=== PATIENT | male | born 1945 | race Caucasian/White ===

== ENCOUNTER 2020-04-15 09:34 | Inpatient (IN) | payer MEDICARE ==
[2020-04-06 15:48] LABS: BASOPHILS # (AUTO) 0.1 X10'3 (0-0.2); BASOPHILS % (AUTO) 1.5 % (0-1); EOSINOPHILS # (AUTO) 0.3 X10'3 (0-0.9); EOSINOPHILS % (AUTO) 4.5 % (0-6); LYMPHOCYTES # (AUTO) 1.6 X10'3 (1.1-4.8); LYMPHOCYTES % (AUTO) 23.3 % (21-51); MEAN CORPUSCULAR HGB CONC 32.2 g/dL (33.0-36.5); MEAN CORPUSCULAR VOLUME 86.8 FL (78-98); MEAN PLATELET VOLUME 8.2 FL (7.4-10.4); MONOCYTES # (AUTO) 0.6 X10'3 (0-0.9); MONOCYTES % (AUTO) 9.3 % (2-12); NEUTROPHILS # (AUTO) 4.2 X10'3 (1.8-7.7); NEUTROPHILS % (AUTO) 61.4 % (42-75); PRE OP HEMATOCRIT 47.5 % (42.0-52.0); PRE OP HEMOGLOBIN 15.3 g/dL (14.0-17.9); PRE OP PLATELET COUNT 214 X10'3 (140-440); RED BLOOD COUNT 5.47 X10'6 (4.70-6.10); RED CELL DISTRIBUTION WIDTH 15.4 % (11.5-14.5)
[2020-04-06 16:02] LABS: ALBUMIN 3.7 G/DL (3.4-5.0); ALBUMIN/GLOBULIN RATIO 0.8 (1.1-1.5); ALKALINE PHOSPHATASE 65 IU/L (46-116); BLOOD UREA NITROGEN 15 MG/DL (7-18); BUN/CREATININE RATIO 10.8 (5.4-32.0); CALCIUM 9.4 MG/DL (8.5-10.1); CHLORIDE 104 MMOL/L (99-107); CREATININE 1.39 MG/DL (0.60-1.10); PRE OP ALT 22 U/L (30-65); PRE OP ANION GAP 5 (8-16); PRE OP AST 29 U/L (10-37); PRE OP BILIRUB, TOTAL 0.7 MG/DL (0.0-1.0); PRE OP GLUCOSE 82 MG/DL (70-104); PRE OP POTASSIUM 4.7 MMOL/L (3.4-5.1); PRE OP SODIUM 140 MMOL/L (135-145); TOTAL CARBON DIOXIDE 31.1 MMOL/L (24-32); TOTAL PROTEIN 8.2 G/DL (6.4-8.2); eGFR 50 ML/MIN
[2020-04-15] VITALS (15 sets, daily range): BP systolic 124–157; BP diastolic 81–103
[~2020-04-15] VITALS: Ht 180.3 cm; Wt 89.4 kg
[~2020-04-15 09:34] MED LIST: ALBU6.7H9 INH; ALLO100T PO; ASPI-1265 PO; ATRIN IH; CETI-194 PO; DEXL60CA3 PO; DOCUMENT DATE & TIME OF BETA-BLOCKER PO ONE; FAMO20TA8 PO; FLO0.4C PO; FLUT1DIS15 INH; HYDR118S10 PO; LEVO50TA8 PO; MELO-100 PO; METO100T14 PO; MONT10TA26 PO; SIMV-42 PO; albuterol 2.5 MG/3 ML nebule NEB ONE; ceFAZolin 2gm in dextrose, iso 50 ML IV ONE; famotidine 20mg tablet PO ONE; ringers solution, lacted 1,000 ML IV SCH; tranexamic acid inj. 890 MG in normal saline 100ml IV soln 100 ML IV ONE; vancomycin 1,500 MG in NS 500ml IV soln IV ONE
[2020-04-15] MEDS ORDERED: LIDOcaine 1% (10mg/ml) 2ml vial ONE (10:12)
[2020-04-15] MEDS ORDERED: ringers solution, lacted 1,000 ML IV SCH (11:55)
[2020-04-15] MEDS ORDERED: meperidine/PF 25mg/ml syringe IV PRN ×3 (11:55)
[2020-04-15] MEDS ORDERED: morphine 2 MG/ML inj. syringe IV PRN (11:55)
[2020-04-15] MEDS ORDERED: morphine 4 MG/ML inj SYRINge IV PRN (11:55)
[2020-04-15] MEDS ORDERED: ondansetron/PF 4mg/2ml inj IV PRN ×2 (11:55→16:00)
[2020-04-15] MEDS ORDERED: proCHLORperazine 10 MG/2 ml inj IV PRN (11:55)
[2020-04-15] MEDS ORDERED: fentaNYL/PF 50MCG/1 ML 2ML syringe ONE (12:55)
[2020-04-15] MEDS ORDERED: ketorolac trometh. 30mg/ml inj. ONE (12:55)
[2020-04-15] MEDS ORDERED: ROPIVAcaine 0.5% (5mg/ml) 30ml vial ONE ×2 (12:55→13:44)
[2020-04-15] MEDS ORDERED: MIDAZolam 5mg/5ml vial ONE (12:56)
[2020-04-15] MEDS ORDERED: dexamethasone sod phosphate 10mg/ml inj ONE (13:17)
[2020-04-15] MEDS ORDERED: sevoflurane 250ml liquid IH ONE (13:17)
[2020-04-15] MEDS ORDERED: ePHEDrine 50MG/ML INJ. ONE (13:17)
[2020-04-15] MEDS ORDERED: rocuronium 10mg/ml inj IV ONE (13:44)
[2020-04-15] MEDS ORDERED: LIDOcaine 2% (20mg/ml) 5ml vial ONE (13:44)
[2020-04-15] MEDS ORDERED: propofol inj 20 ML IV ONE (13:44)
[2020-04-15] MEDS ORDERED: ROPIVAcaine 0.2%/PF PUMP/bolus 550 ML INTERSCALE SCH (14:32)
[2020-04-15] MEDS ORDERED: ROPIVAcaine 0.2% (10 MG/5 ML) BOLUS INJECTION INTERSCALE PRN (14:35)
[2020-04-15] MEDS ORDERED: ondansetron/PF 4mg/2ml inj ONE (15:47)
[2020-04-15] MEDS: potassium cl 20mEq in 1/2 NS 1,000 ML IV SCH ×2 (15:57→22:12)
[2020-04-15] MEDS ORDERED: oxyCODONE IR 5mg (immed. release) tablet PO PRN ×2 (16:00)
[2020-04-15] MEDS ORDERED: acetaminophen 325mg tablet PO PRN (16:00)
[2020-04-15] MEDS ORDERED: ACETAMINOPHEN PO PRN (16:00)
[2020-04-15] MEDS ORDERED: HYDROmorphone inj. 0.5 MG/0.5 ML DISP.SYRIN IV PRN (16:00)
[2020-04-15] MEDS ORDERED: bisacodyl 10mg suppository rectal RC PRN (16:00)
[2020-04-15] MEDS ORDERED: HYDROCODONE PO PRN (16:00)
[2020-04-15] MEDS ORDERED: diphenhydrAMINE 25mg capsule PO PRN ×2 (16:00)
[2020-04-15] MEDS ORDERED: HYDROmorphone 1 mg/ml syringe IV PRN (16:00)
[2020-04-15] MEDS ORDERED: magnesium hydroxide 30ml (MOM) UD suspension PO PRN (16:00)
--- NOTE | 2020-04-15 16:03 | NUR ---
Received from OR via ortho bed, accompanied by Anesthesiologist Trip and report given by Anesthesiolgist. Doug has 10L Ot mask present sats 96%, all other VS stable, 20G right forearm 100cc/hr running. SCDs on. Good cap refill and plapable radial pulse to left arm, shoulder has dressing and cold pack in place under sling. Dentures at bedside.
[2020-04-15] MEDS ORDERED: albuterol 2.5 MG/3 ML nebule NEB PRN (17:05)
--- NOTE | 2020-04-15 17:13 | NUR ---
Report called to receiving nurse. Transferred via ortho bed. Belongings sent with patient. Special Issues communicated to receiving nurse LUBA Judge. BLL and call light within reach. VS stable. Will ambulate patient with assistance. Chart at bedside. Re-educated on pain meds/ ON-Q.
[2020-04-15] MEDS ORDERED: ipratropium 0.5 MG/2.5ML nebule IH PRN (17:15)
--- NOTE | 2020-04-15 17:15 | NUR ---
Report received from ASSISTANT PRODUCT MANAGERAbby.
--- NOTE | 2020-04-15 17:28 | NUR ---
Patient unable to void, Dr Reno was called and informed patient does has retention issues at home sometimes, he states okay to place straight cath q6h prn. Orders placed.
[2020-04-15] MEDS ORDERED: tranexamic acid inj. 890 MG in normal saline 100ml IV soln 100 ML IV ONE (19:00)
--- NOTE | 2020-04-15 19:00 | NUR ---
Problems reprioritized. Patient report given, questions answered & plan of care reviewed with LUBA Carreno.
[2020-04-15] MEDS: ceFAZolin 1GM/D5W- ADD-VANTAGE 50 ML IV SCH ×2 (19:10→23:47)
[2020-04-15] MEDS ORDERED: vancomycin/NS 1 GM ADD-VANTAGE 250 ML IV SCH (20:00)
[2020-04-15] MEDS: acetaminophen 325mg tablet PO SCH (20:06)
[2020-04-15] MEDS ORDERED: famotidine 20mg tablet PO SCH (21:00)
[2020-04-15] MEDS ORDERED: cetirizine 10mg tablet PO SCH (21:00)
[2020-04-15] MEDS ORDERED: allopurinol 300 MG tablet PO SCH (21:00)
[2020-04-15] MEDS ORDERED: sennosides 8.6mg tablet PO SCH (21:00)
[2020-04-15] MEDS ORDERED: metoprolol tartrate 50mg tablet PO SCH (21:00)
[2020-04-15] MEDS ORDERED: atorvastatin 10mg tablet PO SCH (21:00)
[2020-04-15] MEDS ORDERED: montelukast 10mg tablet PO SCH (21:00)
[2020-04-15] MEDS: budesonide 0.5mg/2ml UD nebule IH SCH (21:28)
[2020-04-16] VITALS: BP 152/71
--- NOTE | 2020-04-16 00:23 | NUR ---
Bladder scan done and showed 465mL. Patient states he can feel that there is retention but he is not uncomfortable. Patient stated that he straight caths himself at home when he has retention. Orders say to straight cath Q6 hrs if patient unable to void and if there is greater than 400cc in the bladder. Patient tried to void himself and was unable to void.
[2020-04-16] MEDS: acetaminophen 325mg tablet PO SCH ×2 (02:00→07:49)
[2020-04-16 05:07] LABS: BASOPHILS % (AUTO) 0.4 % (0-1); EOSINOPHILS % (AUTO) 0 % (0-6); HEMATOCRIT 44.1 % (42.0-52.0); HEMOGLOBIN 14.5 g/dl (14.0-17.9); LYMPHOCYTES # (AUTO) 0.8 X10'3 (1.1-4.8); LYMPHOCYTES % (AUTO) 7.6 % (21-51); MEAN PLATELET VOLUME 8.2 FL (7.4-10.4); MONOCYTES # (AUTO) 0.6 X10'3 (0-0.9); MONOCYTES % (AUTO) 5.8 % (2-12); NEUTROPHILS # (AUTO) 8.7 X10'3 (1.8-7.7); NEUTROPHILS % (AUTO) 86.2 % (42-75); PLATELET COUNT 202 X10'3 (140-440); RED BLOOD COUNT 5.19 X10'6 (4.70-6.10); RED CELL DISTRIBUTION WIDTH 15.7 % (11.5-14.5); WHITE BLOOD COUNT 10.2 X10'3 (4.5-11.0)
[2020-04-16 05:19] LABS: ANION GAP 8 (8-16); CHLORIDE 107 MMOL/L (99-107); POTASSIUM 4.4 MMOL/L (3.5-5.1); SODIUM 139 MMOL/L (135-145); TOTAL CARBON DIOXIDE 24.2 MMOL/L (24-32)
--- NOTE | 2020-04-16 06:15 | NUR ---
Patient in room [facility]. I have received report from JAXSON VERDUZCO and had the opportunity to ask questions and assume patient care.
--- NOTE | 2020-04-16 06:17 | NUR ---
Problems reprioritized. Patient report given, questions answered & plan of care reviewed with Yovana VERDUZCO.
[2020-04-16] MEDS: budesonide 0.5mg/2ml UD nebule IH SCH (07:12)
[2020-04-16] MEDS: potassium cl 20mEq in 1/2 NS 1,000 ML IV SCH (07:49)
[2020-04-16 08:00] VITALS: BP 139/88
[2020-04-16] MEDS ORDERED: MELOXICAM PO SCH (08:00)
[2020-04-16] MEDS ORDERED: aspirin 81mg tab.chew PO SCH (08:00)
[2020-04-16] MEDS ORDERED: tamsulosin 0.4mg capsule PO SCH (08:00)
[2020-04-16] MEDS ORDERED: pantoprazole 40mg Tablet.DR PO SCH (08:00)
[2020-04-16] MEDS ORDERED: levoTHYROXINE 100mcg tablet PO SCH (08:00)
[2020-04-16] MEDS ORDERED: aspirin 325mg tablet PO SCH (08:30)
--- NOTE | 2020-04-16 10:20 | NUR ---
PATIENT DISCHARGED SAFELY WITH AND ALL BELONGINGS IN POSSESSION. PATIENT VERBALIZES UNDERSTANDING OF AL DC INSTRUCTIONS.
[2020-04-16] MEDS ORDERED: celeCOXIB 100mg capsule PO SCH (20:00)
[2020-04-17] MEDS ORDERED: acetaminophen 325mg tablet PO PRN (16:00)
== END 2020-04-16 10:31 | disposition home or self-care (01) | DRG 483 ==
LOC: PAS IN 09:34 → UNDOADMIN 09:34 → EDSTATUS 12:00 → PAS IN 15:57 → SUR 3N 17:20 → PAS IN 17:20
PROVIDERS: ADMIT Orthopaedic Surgery; ATTEND Orthopaedic Surgery
PROC: 0LS40ZZ Reposition Left Upper Arm Tendon, Open Approach (ICD-10-PCS; 2020-04-15)
PROC: 3E0T3BZ Introduction of Anesthetic Agent into Peripheral Nerves and Plexi, Percutaneous Approach (ICD-10-PCS; 2020-04-15)
PROC: 0RRK00Z Replacement of Left Shoulder Joint with Reverse Ball and Socket Synthetic Substitute, Open Approach (ICD-10-PCS; principal; 2020-04-15 13:17)
DX: M19.012 Primary osteoarthritis, left shoulder (principal); M25.512 Pain in left shoulder; E03.9 Hypothyroidism, unspecified; E78.5 Hyperlipidemia, unspecified; M75.22 Bicipital tendinitis, left shoulder; I10 Essential (primary) hypertension; M75.122 Complete rotator cuff tear or rupture of left shoulder, not specified as traumatic; J45.909 Unspecified asthma, uncomplicated; R13.10 Dysphagia, unspecified; M06.4 Inflammatory polyarthropathy; M65.812 Other synovitis and tenosynovitis, left shoulder; N40.0 Benign prostatic hyperplasia without lower urinary tract symptoms; K21.9 Gastro-esophageal reflux disease without esophagitis; Z85.819 Personal history of malignant neoplasm of unspecified site of lip, oral cavity, and pharynx; Z87.891 Personal history of nicotine dependence; Z79.899 Other long term (current) drug therapy; Z79.82 Long term (current) use of aspirin
CPT/HCPCS: 36415; 80051; 80053; 82948; 85025; 87081; 87635; 94640; 94760; 97110; 97161; 97530; A4565; A4618; A7000; C1776; G0378; J0690; J1100; J1885; J2001; J2250; J2405; J2704; J2795; J3010; J3370; J3480; J7040; J7120; J7626